=== PATIENT | female | born 1990 | race Caucasian/White ===

== ENCOUNTER 2016-10-08 20:35 | Emergency (ER) | payer OTHER ==
[2016-10-08 20:41] VITALS: BP 121/70; PULSE 86; TEMP 98.1; BMI 25.0
[2016-10-08] MEDS ORDERED: TETRACAINE 0.5% OPHTH SOLN 2 ML BOTTLE ONE (20:52)
[2016-10-08] MEDS ORDERED: FLUORESCEIN NA 1 EA STRIP ONE (20:53)
--- NOTE | 2016-10-08 21:03 | PDOC ---
History of Present Illness - General History Source: Patient Exam Limitations: No Limitations - History of Present Illness Initial Comments: 10/08/16 21:03 The patient is a 26 year old female with no past medical history who presents to the ED with complaints of right eye irritation secondary to getting toothpaste into her eye two days ago. The patient only complains of redness to the eye and denies pain. She denies rubbing her eye or any change in vision. She reports using redness eye drops without getting any relief. The patient denies any fever, chills, nausea, vomiting, diarrhea, cough, shortness of breath , or urinary symptoms. <Naomi Rodríguez - Last Filed: 10/08/16 21:03> <Rasheeda Manley - Last Filed: 10/09/16 02:05> - General Chief Complaint: Eye Problem Stated Complaint: RT EYE IRRITATION Time Seen by Provider: 10/08/16 20:40 Past History <Naomi Rodríguez - Last Filed: 10/08/16 21:03> - Past Medical History Other medical history: DENIES - Psycho/Social/Smoking Cessation Hx Anxiety: No Suicidal Ideation: No Smoking History: Never smoked Information on smoking cessation initiated: No Hx Alcohol Use: (occasional) Substance Use Type: None <Rasheeda Manley - Last Filed: 10/09/16 02:05> - Past Medical History Allergies/Adverse Reactions: Allergies Allergy/AdvReac Type Severity Reaction Status Date / Time No Known Allergies Allergy Verified 10/08/16 20:37 Home Medications: Ambulatory Orders NK [No Known Home Medication] 10/08/16 Review of Systems - Review of Systems Able to Perform ROS?: Yes Comments:: 10/08/16 21:03 CONSTITUTIONAL: Absent: fever, no chills, no fatigue EYES: Present: red eye irritation Absent: visual changes ENT: Absent: ear pain, no sore throat CARDIOVASCULAR: Absent: chest pain, no palpitations RESPIRATORY: Absent: cough, no SOB GI: Absent: abdominal pain, no nausea, no vomiting, no constipation, no diarrhea GENITOURINARY: Absent: dysuria, no frequency, no hematuria MUSKULOSKELETAL: Absent: back pain, no arthralgia, no myalgia SKIN: Absent: rash NEURO: Absent: headache All Other Systems: Reviewed and Negative <Naomi Rodríguez - Last Filed: 10/08/16 21:03> *Physical Exam - Vital Signs Last Vital Signs Temp Pulse Resp BP Pulse Ox 98.1 F 86 18 121/70 97 10/08/16 20:35 10/08/16 20:35 10/08/16 20:35 10/08/16 20:35 10/08/16 20:35 - Physical Exam Comments: 10/08/16 21:04 GENERAL: Well-appearing, well-nourished. No apparent distress. HEENT: moderate erythema of conjunctiva of lateral aspect of right eye. Anterior chamber and pupil are normal, the pupil is 3 mm and briskly reactive, equal to L pupil. No evidence of crusting or edema of eyelash margins. No evidence of foreign body. Normocephalic, atraumatic. PERRL, EOM intact. CARDIOVASCULAR: Normal S1, S2. Regular rate and rhythm. PULMONARY: Clear to auscultation bilaterally. ABDOMEN: Soft, non-distended, non-tender. EXTREMITIES: Normal ROM in all four extremities. No gross deformities. SKIN: Warm, dry. No rash NEUROLOGICAL: No focal neurological deficits. <Naomi Rodríguez - Last Filed: 10/08/16 21:03> - Vital Signs Last Vital Signs Temp Pulse Resp BP Pulse Ox 98.1 F 86 18 121/70 97 10/08/16 20:35 10/08/16 20:35 10/08/16 20:35 10/08/16 20:35 10/08/16 20:35 <Rasheeda Manley - Last Filed: 10/09/16 02:05> Medical Decision Making - Medical Decision Making Documentation has been prepared under my direction and personally reviewed by me in its entirety. I attest that this documented accurately reflects all work, treatment, procedures and medical decision making performed by me. As noted above, this 26-year-old woman presents with mild erythema of the lateral aspect of her right eye 2 days after small amount of toothpaste splashed into the eye. There has been no change in vision; patient has persistent mild discomfort in the area. Exam as noted. There is no gross evidence of foreign body or abnormality of the orbit. Fluoroscein staining performed: 1 drop of 0.5% tetracaine placed in the right eye. Fluorescein strip with sterile normal saline applied to the lower palpebral sac and eye reexamined with bluelight: No evidence of corneal abrasion /foreign body/ulcer. Clinical presentation most consistent with very mild chemical irritation of the conjunctiva of right eye. Patient has been advised to use lubricating drops as needed several times a day. She was given referral information for Dr Bhardwaj/ for follow- up ophthalmologic evaluation within the next 5 days <Rasheeda Manley - Last Filed: 10/09/16 02:05> *DC/Admit/Observation/Transfer - Attestations Scribe Attestion: 10/08/16 21:07 Documentation prepared by Naomi Rodríguez, acting as medical advisor for Rasheeda Manley MD. <Naomi Rodríguez - Last Filed: 10/08/16 21:03> <Rasheeda Manley - Last Filed: 10/09/16 02:05> Diagnosis at time of Disposition: Irritation of right eye - Discharge Dispostion Disposition: HOME Condition at time of disposition: Stable - Referrals Referrals: Phil Bhardwaj MD [Staff Physician] - 1 week - Patient Instructions Printed Discharge Instructions: DI for Chemical Eye Burn Additional Instructions: Use lubricating eyedrops several times a day until seen byeye doctor Follow-up with service cashier (Drs. Bhardwaj/Joan) within the next 5 days Return to the ER if you have worsening redness/pain or have change in vision
== END 2016-10-08 21:09 | disposition home or self-care (01) ==
LOC: FER 20:35
DX: H57.8 Other specified disorders of eye and adnexa (principal); X58.XXXA Exposure to other specified factors, initial encounter; Y93.89 Activity, other specified; Y92.002 Bathroom of unspecified non-institutional (private) residence as the place of occurrence of the external cause
CPT/HCPCS: 99283-25

== ENCOUNTER 2017-07-20 01:05 | Inpatient (IN) | payer OTHER ==
[2017-07-20] MEDS ORDERED: OXYTOCIN 20 UNITS in 0.9% NS 20 UNIT/1,000 ML INFUS.BAG IV ONE (01:19)
[2017-07-20] MEDS ORDERED: BISACODYL 10 MG SUPP.RECT RC PRN (01:31)
[2017-07-20] MEDS ORDERED: WITCH HAZEL 50% (TUCKS) 40 PAD/JAR PAD TP PRN (01:31)
[2017-07-20] MEDS ORDERED: BENZOCAINE 20% 57 GM BOTTLE TP PRN (01:31)
[2017-07-20] MEDS ORDERED: BENZOCAINE 28 GM HEMORRHOIDAL OINTMENT TP PRN (01:31)
[2017-07-20] MEDS ORDERED: METHYLERGONOVINE MALEATE 0.2 MG/1 ML AMP IM PRN (01:31)
[2017-07-20] MEDS ORDERED: ACETAMINOPHEN 325 MG TABLET (FP) PO PRN (01:31)
--- NOTE | 2017-07-20 01:38 | HP ---
Past Medical History - Primary Care Physician PCP:: Sacha Orosco - Admission Chief Complaint: 39 weeks, labor History of Present Illness: 27 yo f , 39,3 weeks, iwith rom since 6 pm in labor, cx full 100 vx 3+, PUSHING, , CLEAR FLUID History Source: Patient Limitations to Obtaining History: No Limitations - Past Medical History ...: 7 ...Para: 2 ...Term: 2 ...EDC by Sono: 07/23/17 - Past Surgical History Hx Myomectomy: No Hx Transabdominal Cerclage: No - Smoking History Smoking history: Never smoked - Alcohol/Substance Use Hx Alcohol Use: (occasional) - Social History Usual Living Arrangement: Yes: With Spouse History of Recent Travel: No Home Medications - Allergies Allergies/Adverse Reactions: Allergies Allergy/AdvReac Type Severity Reaction Status Date / Time No Known Allergies Allergy Verified 05/15/17 18:46 - Home Medications Home Medications: Ambulatory Orders Vit/Iron Fum/Folic AC [ Tablet] 1 tab PO DAILY 05/15/17 Review of Systems - Review of Systems Constitutional: reports: No Symptoms Eyes: reports: No Symptoms HENT: reports: No Symptoms Neck: reports: No Symptoms Cardiovascular: reports: No Symptoms Respiratory: reports: No Symptoms Gastrointestinal: reports: No Symptoms Genitourinary: reports: No Symptoms Breasts: reports: No Symptoms Reported Musculoskeletal: reports: No Symptoms Integumentary: reports: No Symptoms Neurological: reports: No Symptoms Endocrine: reports: No Symptoms Psychiatric: reports: No Symptoms Physical Exam - Maternity Constitutional: Yes: Well Nourished, No Distress, Calm Eyes: Yes: WNL, Conjunctiva Clear, EOM Intact HENT: Yes: WNL, Atraumatic, Normocephalic Neck: Yes: WNL, Supple, Trachea Midline Cardiovascular: Yes: WNL, Regular Rate and Rhythm Breast(s): Yes: WNL - Abdominal Exam/OB Fundal Height: 38 Number of Fetuses: Single Presentation: Vertex Contractions: Yes Regularity: Regular Intensity: Strong Monitor Mode: External Heart Rate Location: [facility] - Vaginal Exam/OB Vaginal Bleediing: Bloody Show Speculum Exam: No Dilatation (cm): FULL Effacement (%): 100 Amniotic Membrane Status: Ruptured Amniotic Fluid: Yes: Clear Presentation: Vertex/Position Station: +3 - Physical Exam Musculoskeletal: Yes: WNL Extremities: Yes: WNL Edema: LLE: Trace, RLE: Trace Deep Tendon Reflex Grade: Normal +2 Psychiatric: Yes: WNL Hemorrhage Risk Assessment - Risk Factors Medium Risk Factors: Yes: None High Risk Factors: Yes: None Risk Score: 1 Risk Level: Medium Risk Problem List - Problems (1) with 39 completed weeks gestation Code(s): Z3A.39 - 39 WEEKS GESTATION OF (2) Labor established Code(s): VJS4143 - Assessment/Plan ADMIT FOR VAGINAL DELIVERY
[2017-07-20] MEDS ORDERED: OXYTOCIN 20 UNITS in 0.9% NS 20 UNIT/1,000 ML INFUS.BAG IV SCH (01:45)
[2017-07-20 02:02] VITALS: BMI 30.7
[2017-07-20 02:34] LABS: BASO % 0.2 % (0-2.0); EOS % 0.2 % (0-4.5); HEMATOCRIT 31.6 % (32.4-45.2); HEMOGLOBIN 10.5 GM/dL (10.7-15.3); LYMPH % 12.8 % (8-40); MCH 27.8 pg (25.7-33.7); MCHC 33.2 g/dl (32.0-36.0); MEAN CELL VOLUME 83.6 fl (80-96); MEAN PLT VOLUME 9.5 fl (7.5-11.1); MONO % 5.7 % (3.8-10.2); NEUT % 81.1 % (42.8-82.8); PLATELET COUNT 185 K/MM3 (134-434); RBC 3.78 M/mm3 (3.60-5.2); RDW 14.7 % (11.6-15.6); WHITE BLOOD COUNT 10.4 K/mm3 (4.0-10.0)
[2017-07-20 02:47] LABS: INR 0.94 (0.82-1.09); PROTHROMBIN TIME (PATIENT) 10.6 SEC (9.7-13.0)
[2017-07-20 02:49] LABS: ACTIVATED PTT 23.9 SECONDS (26.9-34.4)
[2017-07-20 03:07] LABS: ANION GAP 11 (8-16); BLOOD UREA NITROGEN 14 mg/dL (7-18); CALCIUM 8.4 mg/dL (8.5-10.1); CHLORIDE 109 mmol/L (98-107); CO2 20 mmol/L (21-32); CREATININE 0.6 mg/dL (0.55-1.02); GLUCOSE,RANDOM 91 mg/dL (74-106); SODIUM 140 mmol/L (136-145)
--- NOTE | 2017-07-20 06:56 | PN ---
Delivery - Delivery Vaginal Delivery: Spontaneous (cord around neck once reduced , no complication, 9/9) Type of Anesthesia: None Episiotomy/Laceration: None EBL (cc): 300 Delivery, Single - Stages of Labor Date 1st Stage Initiatied: 07/19/17 Time 1st Stage Initiated: 18:00 Date 2nd Stage Initiated: 07/20/17 Time 2nd Stage Initiated: 01:15 Date of Delivery: 07/20/17 Time of Delivery: 01:21 Time Placenta Delivered: 01:30 - Condition of Campus Rep/Pyroglazer Present: [place]: Jez Lawson Gender: Male Weight: 7 lb 8 oz Position: OA Total Hours ROM (Hrs/Mins): 5hrs.55mins - 1 Minute Total Score: 9 5 Minutes Total Score: 9 - Feeding Plan Initial Plan: Exclusive throughout hospitalization
[2017-07-20] MEDS ORDERED: TUBERCULIN PPD 5 TU/0.1ML SYRINGE (IN PATIENT USE ONLY) ID ONE (09:00)
[2017-07-20] MEDS: PRENATAL VITAMINS W/ FOLIC ACID TABLET (FP) PO SCH (09:22)
[2017-07-20] MEDS: FERROUS SO4 325 MG TABLET (FP) PO SCH ×2 (09:22→22:04)
[2017-07-21] MEDS: IBUPROFEN 600 MG TABLET (FP) PO PRN ×2 (01:50→17:31)
[2017-07-21 08:30] LABS: BASO % 0.4 % (0-2.0); EOS % 0.7 % (0-4.5); HEMATOCRIT 33.2 % (32.4-45.2); LYMPH % 25.9 % (8-40); MCH 28.2 pg (25.7-33.7); MCHC 33.2 g/dl (32.0-36.0); MEAN CELL VOLUME 84.9 fl (80-96); MEAN PLT VOLUME 9.3 fl (7.5-11.1); MONO % 5.8 % (3.8-10.2); NEUT % 67.2 % (42.8-82.8); PLATELET COUNT 153 K/MM3 (134-434); RBC 3.91 M/mm3 (3.60-5.2); RDW 15.2 % (11.6-15.6); WHITE BLOOD COUNT 11.2 K/mm3 (4.0-10.0)
[2017-07-21] MEDS: FERROUS SO4 325 MG TABLET (FP) PO SCH ×2 (09:05→21:49)
[2017-07-21] MEDS: PRENATAL VITAMINS W/ FOLIC ACID TABLET (FP) PO SCH (09:05)
[2017-07-21] MEDS ORDERED: SENNOSIDES/DOCUSATE COMBO (SENNA PLUS) TABLET (UD) PO PRN (22:00)
[2017-07-22] MEDS: PRENATAL VITAMINS W/ FOLIC ACID TABLET (FP) PO SCH (09:20)
[2017-07-22] MEDS: FERROUS SO4 325 MG TABLET (FP) PO SCH (09:20)
[2017-07-22 10:02] VITALS: BP 126/61; PULSE 91; TEMP 98.4
--- NOTE | 2017-07-22 12:49 | DS ---
Physical Exam-LIFE UNDERWRITER Vital Signs: Vital Signs Temperature 98.4 F 07/22/17 10:00 Pulse Rate 91 H 07/22/17 10:00 Respiratory Rate 20 07/22/17 10:00 Blood Pressure 126/61 07/22/17 10:00 O2 Sat by Pulse Oximetry (%) 99 07/20/17 03:00 Constitutional: Yes: Well Nourished, No Distress, Calm Eyes: Yes: WNL, Conjunctiva Clear, EOM Intact HENT: Yes: WNL, Atraumatic, Normocephalic Neck: Yes: WNL, Supple, Trachea Midline Cardiovascular: Yes: WNL, Regular Rate and Rhythm Respiratory: Yes: WNL, Regular, CTA Bilaterally Gastrointestinal: Yes: WNL ...Rectal Exam: Yes: WNL Renal/: Yes: WNL ....Post : Yes: Uterus firm, Uterus non-tender, Slight lochia rubra Breast(s): Yes: WNL Musculoskeletal: Yes: WNL Extremities: Yes: WNL Edema: No Integumentary: Yes: WNL Neurological: Yes: WNL, Alert, Oriented ...Motor Strength: WNL Psychiatric: Yes: WNL, Alert, Oriented Labs: CBC, BMP 07/21/17 07:50 07/20/17 02:25 Delivery - Delivery Vaginal Delivery: Spontaneous (cord around neck once reduced , no complication, 9/9) Type of Anesthesia: None Episiotomy/Laceration: None EBL (cc): 300 Delivery, Single - Stages of Labor Date 1st Stage Initiatied: 07/19/17 Time 1st Stage Initiated: 18:00 Date 2nd Stage Initiated: 07/20/17 Time 2nd Stage Initiated: 01:15 Date of Delivery: 07/20/17 Time of Delivery: 01:21 Time Placenta Delivered: 01:30 - Condition of Senior Structural Engineer/Pupil Personnel Services Director Present: [place]: Jez Lawson Gender: Male Weight: 7 lb 8 oz Position: OA Total Hours ROM (Hrs/Mins): 5hrs.55mins - 1 Minute Total Score: 9 5 Minutes Total Score: 9 - [place] Feeding Plan Initial Plan: Exclusive throughout hospitalization Discharge Summary Reason For Visit: LABOR Procedures: Principal: Hospital Course: no complication Condition: Stable - Instructions Referrals: Sacha Orosco MD [Staff Physician] - Disposition: HOME - Home Medications Comprehensive Discharge Medication List: Ambulatory Orders Vit/Iron Fum/Folic AC [ Tablet] 1 tab PO DAILY 05/15/17
== END 2017-07-22 10:35 | disposition home or self-care (01) | DRG 560 ==
LOC: JLDR 01:05 → J3W 03:30
PROVIDERS: ADMIT Obstetrics & Gynecology; ATTEND Obstetrics & Gynecology
PROC: 10E0XZZ Delivery of Products of Conception, External Approach (ICD-10-PCS; principal; 2017-07-20)
DX: O69.81X0 Labor and delivery complicated by cord around neck, without compression, not applicable or unspecified (principal); Z3A.39 39 weeks gestation of pregnancy; Z37.0 Single live birth
CPT/HCPCS: 36415; 59409; 80048; 85025; 85610; 85730; 86593; 86850; 86900; 86901; 87389